=== PATIENT | female | born 1980 | race Caucasian/White ===

== ENCOUNTER 2018-05-29 18:30 | Emergency (ER) | payer SELFPAY ==
--- NOTE | 2018-05-29 19:51 | ED Physician Chart ---
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 COUGH Allergies:: Allergies Allergy/AdvReac Type Severity Reaction Status Date / Time No Known Allergies Allergy Verified 05/29/18 19:23 Vitals:: Vital Signs - 8 hr 05/29/18 19:24 Temp 98.9 F HR 80 RR 17 BP 115/74 O2 Sat % 96 ED Review of Systems - Review of Systems General/Constitutional: No fever Skin: No skin lesions Head: No headache Eyes: No loss of vision ENT: Earache Neck: No neck pain Pulmonary: No SOB, Cough GI: No nausea, No vomiting G/U: No dysuria Legend Maker: No vaginal discharge Musculoskeletal: No bone or joint pain Endocrine: No polyuria Psychiatric: No prior psych history Hematopoietic: No bruising Allergic/Immuno: No urticaria Neurological: No syncope ED Past Medical History - Past Medical History Past Medical History: No significant medical hx ED Physical Exam - Physical Examination General/Constitutional: Well-developed, well-nourished, No distress Head: Atraumatic Eyes: Lids, conjuctiva normal Skin: Nl inspection Neck: Nontender Respiratory: Nl effort/Exclusion Cardio Vascular: RRR GI: No tenderness/rebounding/guarding : No CVA tenderness Extremities: No tenderness or effusion Neuro/Psych: Alert/oriented Misc: Normal back ED Septic Shock - . Is Septic Shock (SBP<90, OR Lactate>4 mmol\L) present?: No - <6hrs of presentation: Vital Signs: Vital Signs - 8 hr 05/29/18 19:24 Temp 98.9 F HR 80 RR 17 BP 115/74 O2 Sat % 96 ED Reassessment (Disposition) - Reassessment Reassessment Condition:: Improved - Diagnosis Diagnosis:: BRONCHITIS - Aftercare/Follow up Instructions Aftercare/Follow-Up Instructions:: Counseled pt regarding lab results/diagnosis & need follow up Medication Prescribed:: AMOX ALBUTEROL INHALER - Patient Disposition Discharge/Transfer:: Home Condition at Disposition:: Stable
== END 2018-05-29 20:24 | disposition home or self-care (01) ==
LOC: ER 18:30
DX: J40 Bronchitis, not specified as acute or chronic (principal); F17.200 Nicotine dependence, unspecified, uncomplicated
CPT/HCPCS: Z7502